=== PATIENT | female | born 1960 | race Caucasian/White ===

== ENCOUNTER → 2022-04-19 | Outpatient (CLI) | payer OTHER, SELFPAY ==
--- NOTE | 2022-04-19 07:51 | CT_ITS ---
STUDY: CT SCAN LOWER EXTREMITY LEFT. [facility] protocol. REASON FOR EXAM: Female, 61 years old. PREOP RADIATION DOSAGE (If Supplied By Facility): CTDIvol = ( 19.17 ) mGy, DLP = ( 1570.43 ) mGycm. Individualized dose optimization techniques were used for this CT.? TECHNIQUE: Multiple axial tomographic images of the left lower extremity were obtained. Sagittal and coronal reconstruction was obtained as well. COMPARISON: None. FINDINGS: Imaging of the left hip joint was performed. There is a mild degree of joint space narrowing. Mild degree of degenerative spur formation along the inferior medial aspect of the left femoral head. Multiple images of the knee joint were obtained. There is a moderate degree of joint space narrowing with degenerative spur formation along the medial compartment of the knee joint. Marked degree of joint space narrowing in the petrous perforation of the patellofemoral joint. CT/Extremity Lower without Contra IMPRESSION: Moderate degree of joint space narrowing with degenerative spur formation of the medial compartment of knee joint. Marked degree of joint space narrowing with degenerative spur formation of the patellofemoral joint. Small joint effusion. Electronically Signed: Quoc Parker MD at 14:59 EST ,
== END | disposition home or self-care (01) ==
LOC: CT 07:49
PROVIDERS: Visit Provider Specialist
DX: M17.12 Unilateral primary osteoarthritis, left knee (principal)
CPT/HCPCS: 73700